=== PATIENT | female | born 1990 | race African-American/Black ===

== ENCOUNTER 2020-04-08 15:30 | Inpatient (IN) | payer MEDICAID ==
[~2020-04-08] VITALS: Ht 157.5 cm; Wt 87.7 kg
[2020-04-15] VITALS (20 sets, daily range): BP systolic 84–128; BP diastolic 54–85; PULSE 68–106; TEMP 97.4–98.8
[2020-04-15 11:26] LABS: BASO % 0.4 % (0.0-2.0); EOS # 0.1 (0.0-0.7); EOS % 0.4 % (0-4.0); GRAN # 8.1 (1.4-6.5); GRAN % 71.7 % (42.2-75.2); HEMATOCRIT 35.7 % (37.0-47.0); HEMOGLOBIN 11.8 g/dl (12.5-16.0); LYMPH # 2.5 (1.2-3.4); LYMPH % 22.1 % (20.0-51.0); MEAN CELL VOLUME 85 fl (80.0-100.0); MEAN CORPUSCULAR HEMOGLOBIN 28 pg (27.0-31.0); MEAN CORPUSCULAR HGB CONC 33 g/dl (33.0-37.0); MEAN PLATELET VOLUME 9.2 fl (7.4-10.4); MONO # 0.6 (0.1-0.6); PLATELET COUNT 218 K/mm3 (130-400); RED BLOOD COUNT 4.18 M/mm3 (4.10-5.30); REDCELL DISTRIBUTION WIDTH-CV 13.9 % (11.5-14.5)
[2020-04-15] MEDS ORDERED: PRENATAL VITAMI1 T12 PO (11:28)
--- NOTE | 2020-04-15 11:37 | NUR ---
PT HERE FOR REPEAT . PLAN OF CARE REVIEWED. FHT'S FOUND IN THE 130'S WITH MODERATE VARIABILITY AND ACCELS. IV STARTED IN RIGHT HAND WITH LR INFUSING WITHOUT DIFFICULTY. BLOOD WORK OBTAINED WITH IV START. CONSENTS SIGNED. ASSESSMENT COMPLETED.
--- NOTE | 2020-04-15 14:11 | NUR ---
REPEAT BY DR QUINN AND DR AGUILAR. PT TO OR SUITE AMBULATING WITH AT HER SIDE. TO OR BED. SPINAL PLACED BY GABRIELE CASILLAS. PT POSITIONED LYING DOWN WITH BUMP UNDER RIGHT HIP. QUEEN CATHETER PLACED WITH CLEAR YELLOW URINE RETURNED. SAFETY STRAP ACROSS THIGHS. ARMS SECURED ON BILATERAL ARM BOARDS. SCD'S IN PLACE. ABDOMEN PREPPED WITH BETADINE. INFANT BORN AT 1313. UTERUS REPAIRED BY DR QUINN AND LAUREN. FUNDUS FIRM WITH SMALL AMOUNT OF BLEEDING AFTER REPAIR COMPLETE. TAP BLOCK PERFORMED BY GABRIELE CASILLAS. ABDOMEN CLEANED. DRESSING APPLIED. PT TRANSFERRED TO BED AND DISCHARGED TO PACU AT 1400.
--- NOTE | 2020-04-15 16:05 | NUR ---
PT REPORTING PAIN AT INCISION SITE AND IS REQUESTING PAIN MEDICATION.
[2020-04-16 04:40] VITALS: BP 107/67; PULSE 91; TEMP 98
--- NOTE | 2020-04-16 06:00 | NUR ---
Denies any discomfort or needs at this time. Holds baby lovingly.
--- NOTE | 2020-04-16 08:15 | NUR ---
Rests in bed, alert. 0825 Ibuprofen 600 mg given as ordered. Denies any other needs at this time.
[2020-04-16 08:30] VITALS: BP 113/70; PULSE 87; TEMP 98.2
--- NOTE | 2020-04-16 12:59 | NUR ---
stopped by but nothing needed at this time.
[2020-04-16 16:15] VITALS: BP 117/78; PULSE 74; TEMP 98.4
--- NOTE | 2020-04-16 16:15 | NUR ---
Rests in bed, alert. Ibuprofen 600 mg given as ordered.
[2020-04-16 20:30] VITALS: BP 112/68; PULSE 88; TEMP 98.6
[2020-04-17] MEDS ORDERED: MOTRIN 600600 MG/TAB PO (07:45)
[2020-04-17] MEDS ORDERED: PERCOCET 325 MG1 TA2 PO (07:45)
[2020-04-17 08:15] VITALS: BP 113/65; PULSE 80; TEMP 98.2
--- NOTE | 2020-04-17 08:15 | NUR ---
Rests in bed, alert. Denies any discomfort or needs at this time. Baby to nursery for assessment with Dr. Enriquez.
[2020-04-17 15:45] VITALS: BP 118/74; PULSE 88; TEMP 98.2
[2020-04-17 20:06] VITALS: BP 119/80; PULSE 83; TEMP 98
[2020-04-18 09:07] VITALS: BP 114/58; PULSE 82; TEMP 97.2
--- NOTE | 2020-04-18 10:20 | NUR ---
Initial visit; Parents thanked for offering congratulations for the of their daughter. Gamb Cutter thanked family for choosing [place].
== END 2020-04-18 11:30 | disposition home or self-care (01) | DRG 788 ==
LOC: OB
PROVIDERS: ADMIT Obstetrics & Gynecology
PROC: 10D00Z1 Extraction of Products of Conception, Low, Open Approach (ICD-10-PCS; principal; 2020-04-15)
DX: O34.211 Maternal care for low transverse scar from previous cesarean delivery (principal); Z37.0 Single live birth; O99.02 Anemia complicating childbirth; D64.9 Anemia, unspecified; O69.81X0 Labor and delivery complicated by cord around neck, without compression, not applicable or unspecified; Z3A.40 40 weeks gestation of pregnancy
CPT/HCPCS: J0690; J1885; J2370; J2405; J2590; J7120

== ENCOUNTER → 2020-04-11 | Outpatient (CLI) | payer MEDICAID ==
[~2020-04-11] MED LIST: MOTRIN 600600 MG/TAB PO; PERCOCET 325 MG1 TA2 PO; PRENATAL VITAMI1 T12 PO
== END ==
LOC: ZCOL.LAB
DX: Z20.828 Contact with and (suspected) exposure to other viral communicable diseases (principal)

== ENCOUNTER 2020-08-31 14:44 | Emergency (ER) | payer MEDICAID ==
[~2020-08-31] VITALS: Ht 157.5 cm; Wt 82.3 kg
[2020-08-31 14:48] VITALS: TEMP 97.4
[2020-08-31 15:25] LABS: BASO % 0.4 % (0.0-2.0); EOS # 0.1 (0.0-0.7); EOS % 1.4 % (0-4.0); GRAN # 5.5 (1.4-6.5); GRAN % 58.6 % (42.2-75.2); HEMATOCRIT 37.3 % (37.0-47.0); HEMOGLOBIN 12.2 g/dl (12.5-16.0); LYMPH # 3.2 (1.2-3.4); LYMPH % 34.4 % (20.0-51.0); MEAN CELL VOLUME 85 fl (80.0-100.0); MEAN CORPUSCULAR HEMOGLOBIN 28 pg (27.0-31.0); MEAN CORPUSCULAR HGB CONC 33 g/dl (33.0-37.0); MEAN PLATELET VOLUME 8.9 fl (7.4-10.4); MONO # 0.5 (0.1-0.6); PLATELET COUNT 285 K/mm3 (130-400); REDCELL DISTRIBUTION WIDTH-CV 13.3 % (11.5-14.5)
[2020-08-31 15:34] LABS: ALBUMIN 4.2 gm/dL (3.5-5.0); BILIRUBIN,TOTAL 0.4 mg/dL (0.0-1.0); CALCIUM 9.2 mg/dL (8.4-10.2); CREATININE, serum 0.6 (0.52-1.25); POTASSIUM 3.6 mmol/L (3.4-5.0); TOTAL PROTEIN 7.5 gm/dL (6.4-8.2)
[2020-08-31 16:21] LABS: COLLECTION METHOD CLEAN CATCH
[2020-08-31] MEDS ORDERED: HEATHER0.35 MG PO (16:21)
[2020-08-31 16:27] LABS: PH 7 (5-8); SQUAMOUS EPITHELIAL 0-2 /hpf; URINE APPEARANCE Clear; URINE BACTERIA None Seen /hpf; URINE BILIRUBIN Negative (NEGATIVE); URINE BLOOD 3+ (NEGATIVE); URINE COLOR Yellow; URINE GLUCOSE Negative (NEGATIVE); URINE KETONE Negative (NEGATIVE); URINE LEUKOCYTE ESTERASE Negative (NEGATIVE); URINE NITRATE Negative (NEGATIVE); URINE PROTEIN(semi-quant) Negative (NEGATIVE); URINE RBC >50 /hpf; URINE UROBILINOGEN Negative (NEGATIVE)
[2020-08-31 17:14] VITALS: BP 121/88; PULSE 80
== END 2020-08-31 17:15 | disposition home or self-care (01) ==
LOC: COL.ER 14:44
PROVIDERS: Emergency Medicine; Nurse Practitioner
DX: N93.8 Other specified abnormal uterine and vaginal bleeding (principal)